=== PATIENT | male | born 1985 ===

== ENCOUNTER 2017-07-04 14:05 | Emergency (ER) | payer OTHER ==
[2017-07-04 14:14] VITALS: BMI 23.7
[2017-07-04] MEDS ORDERED: Sodium Chloride 0.9% 500 ML IV ONE (14:19)
--- NOTE | 2017-07-04 14:22 | ED PDOC ---
Arrival/HPI - General Chief Complaint: Dizziness/Lightheaded Time Seen by Provider: 07/04/17 14:08 Historian: Patient, EMS - History of Present Illness Time/Duration: Prior to Arrival Symptom Onset: Sudden Symptom Course: Worsening Severity Level: Severe Activities at Onset: Rest Associated Symptoms (Text): 07/04/17 14:20 Patient complains of severe generalized muscle cramps beginning just prior to arrival. He reports that he is diabetic and has not taken his insulin since yesterday. He reports his sugar is high yesterday. Fingerstick blood sugar is 92 in the emergency department. He denies nausea and vomiting to me. Denies dizziness. He complains of a mild cough. No chest pain or dyspnea. No abdominal pain or diarrhea. He reports some urinary frequency. No dysuria. No fever or chills. Appears to be responding to internal stimuli. Past Medical History - Infectious Disease Hx of Infectious Diseases: None - Cardiac Hx Cardiac Disorders: No - Pulmonary Hx Pulmonary Embolism: No - Neurological Hx Multiple Sclerosis: No - HEENT Hx Macular Degeneration: No - Renal Hx Renal Cancer: No - Endocrine/Metabolic Hx Endocrine Disorders: Yes Hx Diabetes Mellitus Type 1: Yes - Hematological/Oncological Hx Anemia: No - Integumentary Hx Cellulitis: No - Musculoskeletal/Rheumatological Hx Osteoporosis: No - Gastrointestinal Hx Hemorrhoids: No - Psychiatric Hx Post Traumatic Stress Disorder: No Hx Substance Use: No (pt denies) - Surgical History Hx Coronary Artery Bypass Graft: No - Anesthesia Hx Anesthesia: No Family/Social History - Physician Review Nursing Documentation Reviewed: Yes Family/Social History: Unknown Family HX Smoking Status: Light Smoker < 10 Cigarettes Daily Hx Alcohol Use: Yes Frequency of alcohol use: Socially Hx Substance Use: No (pt denies) Allergies/Home Meds Allergies/Adverse Reactions: Allergies No Known Allergies Allergy (Verified 07/04/17 14:13) Home Medications: Home Meds Medication Instructions Recorded Confirmed Insulin Aspart, Recombinant 10 units SQ DAILY 07/04/17 07/04/17 [Novolog] Insulin Lispro [humALOG] 0 units SQ PRN PRN 07/04/17 07/04/17 Review of Systems - Physician Review All systems were reviewed & negative as marked: Yes - Review of Systems Constitutional: Fatigue. absent: Fevers Respiratory: Cough. absent: SOB, Sputum, Wheezing Cardiovascular: absent: Chest Pain, Palpitations, Syncope Gastrointestinal: absent: Abdominal Pain, Constipation, Diarrhea, Nausea, Vomiting, Anorexia Genitourinary Male: Frequency. absent: Dysuria, Hematuria Neurological: absent: Headache, Dizziness, Focal Weakness, Gait Changes Physical Exam Vital Signs Temp Pulse Resp BP Pulse Ox 07/04/17 15:08 69 18 131/81 100 07/04/17 14:37 98.8 F 71 18 147/100 H 100 Temperature: Afebrile Blood Pressure: Hypertensive Pulse: Regular Respiratory Rate: Normal Appearance: Positive for: Well-Appearing, Non-Toxic, Comfortable Pain Distress: None Mental Status: Positive for: Alert and Oriented X 3 Finger Stick Blood Glucose: 92 - Systems Exam Head: Present: Atraumatic, Normocephalic Pupils: Present: PERRL Extroacular Muscles: Present: EOMI Conjunctiva: Present: Normal Ears: Present: NORMAL TM, Normal Canal. No: Erythema Mouth: Present: Moist Mucous Membranes Pharnyx: No: ERYTHEMA, EXUDATE, TONSILS ENLARGED Neck: Present: Normal Range of Motion. No: MIDLINE TENDERNESS, Paraspinal Tenderness Respiratory/Chest: Present: Clear to Auscultation, Good Air Exchange, Decreased Breath Sounds. No: Respiratory Distress, Accessory Muscle Use Cardiovascular: Present: Regular Rate and Rhythm, Normal S1, S2. No: Murmurs Abdomen: Present: Normal Bowel Sounds. No: Tenderness, Distention, Peritoneal Signs, Rebound, Guarding Upper Extremity: Present: Normal Inspection. No: Cyanosis, Edema Lower Extremity: Present: Normal Inspection. No: Edema Neurological: Present: GCS=15, CN II-XII Intact, Speech Normal, Motor Func Grossly Intact Skin: Present: Warm, Dry, Normal Color. No: Rashes Psychiatric: Present: Alert, Oriented x 3, Normal Insight, Normal Concentration Medical Decision Making ED Course and Treatment: 07/04/17 16:32 EKG shows normal sinus rhythm rate approximately 65 with elevated J-point in no acute ST or T-wave changes. Drug screen is positive for PCP. Patient feels better after normal saline solution. Discharge home. Follow-up with PMD. Follow up in ER as needed. - Lab Interpretations Lab Results: 07/04/17 14:20 07/04/17 14:20 Lab Results 07/04/17 15:29: POC Glucose (mg/dL) 121 H 07/04/17 14:55: Urine Opiates Screen Negative, Urine Methadone Screen Negative, Ur Barbiturates Screen Negative, Ur Phencyclidine Scrn Positive H, Ur Amphetamines Screen Negative, U Benzodiazepines Scrn Negative, U Oth Cocaine Metabols Negative, U Cannabinoids Screen Negative 07/04/17 14:55: Urine Color Yellow, Urine Appearance Clear, Urine pH 7.0, Ur Specific [place] 1.015, Urine Protein Negative, Urine Glucose (UA) Negative, Urine Ketones Negative, Urine Blood Negative, Urine Nitrate Negative, Urine Bilirubin Negative, Urine Urobilinogen 0.2, Ur Leukocyte Esterase Negative 07/04/17 14:20: Alcohol, Quantitative < 10 07/04/17 14:20: Sodium 143, Potassium 4.3, Chloride 103, Carbon Dioxide 28, Anion Gap 17, BUN 13, Creatinine 0.8, Est GFR ( Amer) > 60, Est GFR (Non- Af Amer) > 60, Random Glucose 108, Calcium 9.9, Magnesium 1.8, Total Bilirubin 0.5, AST 32, ALT 34, Alkaline Phosphatase 70, Lactate Dehydrogenase 532, Total Creatine Kinase 465 H, CK-MB (CK-2) 3.6, CK-MB (CK-2) % Cancelled, Troponin I < 0.01, Total Protein 7.7, Albumin 4.7, Globulin 3.0, Albumin/Globulin Ratio 1.6 07/04/17 14:20: WBC 9.4, RBC 4.46, Hgb 14.4, Hct 42.2, MCV 94.6, MCH 32.3, MCHC 34.1, RDW 12.5, Plt Count 298, MPV 11.2 H, Gran % 42.4 L, Lymph % (Auto) 42.4 H , [place] % (Auto) 13.0 H, Eos % (Auto) 1.8, Baso % (Auto) 0.4, Gran # 3.98, Lymph # 4.0 H, [place] # 1.2 H, Eos # 0.2, Baso # 0.04 - RAD Interpretation Radiology Orders: 07/04/17 14:18 CHEST PORTABLE [RAD] Stat - Medication Orders Current Medication Orders: Discontinued Medications Sodium Chloride (Sodium Chloride 0.9%) 500 mls @ 500 mls/hr IV ONCE ONE Stop: 07/04/17 15:18 Last Admin: 07/04/17 14:29 Dose: 500 mls/hr eMAR Start Stop Document 07/04/17 14:29 MR (Rec: 07/04/17 14:29 MR [id number]) Intravenous Solution Start Date 07/04/17 Start Time 14:29 End Date 07/04/17 End time 15:29 Total Infusion Time 60 Disposition/Present on Arrival - Present on Arrival Any Indicators Present on Arrival: No History of DVT/PE: No History of Uncontrolled Diabetes: No Urinary Catheter: No History of Decub. Ulcer: No History Surgical Site Infection Following: None - Disposition Have Diagnosis and Disposition been Completed?: Yes Diagnosis: Substance abuse, Diabetes Disposition: HOME/ ROUTINE Disposition Time: 16:33 Patient Plan: Discharge Patient Problems: Current Active Problems Problem Status Onset Diabetes Acute Substance abuse Acute Condition: GOOD Discharge Instructions (ExitCare): Diabetes Mellitus Type 1 in Adults (ED), Methamphetamine Abuse (ED), Polysubstance Abuse (ED) Referrals: PCP,NO [Primary Care Provider] - Follow up with primary Forms: [employer] [facility] (Thai)
[2017-07-04 14:40] VITALS: TEMP 98.8; O2SAT 100
[2017-07-04 14:55] LABS: BASO # 0.04 K/mm3 (0.0-2.0); BASO % 0.4 % (0.0-3.0); EOS # 0.2 (0.0-0.7); EOS % 1.8 % (1.5-5.0); GRAN # 3.98 (1.4-6.5); GRAN % 42.4 % (50.0-68.0); HEMATOCRIT 42.2 % (42.0-52.0); LYMPH % 42.4 % (22.0-35.0); MEAN CELL VOLUME 94.6 fl (80.0-105.0); MEAN CORPUSCULAR HEMOGLOBIN 32.3 pg (25.0-35.0); MEAN CORPUSCULAR HGB CONC 34.1 g/dl (31.0-37.0); MEAN PLATELET VOLUME 11.2 fl (7.0-11.0); MONO # 1.2 (0.1-0.6); RED CELL DISTRIBUTION WIDTH 12.5 % (11.5-14.5); TROPONIN I < 0.01 ng/mL; WHITE BLOOD COUNT 9.4 10^3/ul (4.5-11.0)
[2017-07-04 15:03] LABS: ALB/GLOB RATIO 1.6 (1.1-1.8); ALKALINE PHOSPHATASE 70 U/L (38-126); ALT/SGPT 34 U/L (7-56); AST/SGOT 32 U/L (17-59); BILIRUBIN,TOTAL 0.5 mg/dL (0.2-1.3); BLOOD UREA NITROGEN 13 mg/dL (7-21); CALCIUM 9.9 mg/dL (8.4-10.5); CARBON DIOXIDE 28 mmol/L (21-33); CHLORIDE 103 mmol/L (98-107); GFR AFRICAN-AMERICAN > 60; GLUCOSE,RANDOM 108 mg/dL (70-110); MAGNESIUM 1.8 mg/dL (1.7-2.2); POTASSIUM 4.3 mmol/L (3.6-5.0); SODIUM 143 mmol/L (132-148); TOTAL PROTEIN 7.7 g/dL (5.8-8.3)
[2017-07-04 15:29] LABS: URINE BILIRUBIN NEGATIVE (NEGATIVE); URINE BLOOD NEGATIVE (NEGATIVE); URINE GLUCOSE (UA) NEGATIVE (NEGATIVE); URINE KETONE NEGATIVE (NEGATIVE); URINE LEUKOCYTE ESTERASE NEGATIVE Leu/uL (NEGATIVE); URINE PROTEIN NEGATIVE mg/dL (<30 mg/dL); URINE UROBILINOGEN 0.2 E.U./dL (<1 E.U./dL)
[2017-07-04 15:30] LABS: URINE APPEARANCE CLEAR (CLEAR); URINE COLOR YELLOW (YELLOW)
--- NOTE | 2017-07-04 15:49 | RAD ---
HISTORY: cough COMPARISON: No prior. FINDINGS: LUNGS: No active pulmonary disease. PLEURA: No significant pleural effusion identified, no pneumothorax apparent. CARDIOVASCULAR: Normal. OSSEOUS STRUCTURES: No significant abnormalities. VISUALIZED UPPER ABDOMEN: Normal. OTHER FINDINGS: None. IMPRESSION: No active disease.
[2017-07-04 17:14] VITALS: BP 125/80; PULSE 68; RESP 17
--- NOTE | 2017-07-05 16:54 | CARD ---
APPROVED REPORT EKG Measurement Heart [id number] 104P2 [id number] <Conclusion> Sinus rhythm with short [place] Otherwise normal ECG
== END 2017-07-04 17:16 | disposition home or self-care (01) ==
LOC: ED 14:05
DX: F19.10 Other psychoactive substance abuse, uncomplicated (principal); E11.9 Type 2 diabetes mellitus without complications; Z79.4 Long term (current) use of insulin
CPT/HCPCS: 71010; 80053; 80320; 80324; 80345; 80346; 80349; 80353; 80358; 80361; 81003; 82550; 82553; 82948; 83615; 83735; 83992; 84484; 85025; 93005; 96360; 99285; J7040